=== PATIENT | male | born 1965 | race Caucasian/White ===

== ENCOUNTER 2016-10-29 19:03 | Emergency (ER) | payer OTHER ==
[~2016-10-29] VITALS: Ht 175.3 cm; Wt 129.3 kg
[2016-10-29 19:26] VITALS: BP 180/100
--- NOTE | 2016-10-29 19:32 | PHYS DOC ---
Adult General Chief Complaint Chief Complaint: FINGER INJURY [facility] HPI Patient is a 51 year old male presents to the emergency department with complaints of left index finger laceration. Patient was using a mandolin slicing device when he injured the distal tip of the long finger. Review of Systems Review of Systems Constitutional: Denies fever or chills [] Eyes: Denies change in visual acuity, redness, or eye pain [] HENT: Denies nasal congestion or sore throat [] Respiratory: Denies cough or shortness of breath [] Cardiovascular: No additional information not addressed in HPI [] GI: Denies abdominal pain, nausea, vomiting, bloody stools or diarrhea [] : Denies dysuria or hematuria [] Musculoskeletal: Denies back pain or joint pain [] Integument: Left long finger, laceration Neurologic: Denies headache, focal weakness or sensory changes [] Endocrine: Denies polyuria or polydipsia [] Current Medications Current Medications Current Medications Medications (Trade) Dose Ordered Sig/Melissa Start Time Stop Time Status Last Admin Dose Admin Diphtheria/ Tetanus/Acell Pertussis (Boostrix) 0.5 ml ONCE ONCE 10/29/16 20:00 10/29/16 20:01 Gelatin (Gelfoam Size 12-7mm) 1 each 1X ONCE 10/29/16 20:00 10/29/16 20:01 Ketorolac Tromethamine (Toradol Im) 60 mg 1X ONCE 10/29/16 20:00 10/29/16 20:01 Allergies Allergies Allergies Coded Allergies Type Severity Reaction Last Updated Verified No Known Drug Allergies 10/29/16 No Physical Exam Physical Exam Constitutional: Well developed, well nourished, no acute distress, non-toxic appearance. [] HENT: Normocephalic, atraumatic, bilateral external ears normal, oropharynx moist, no oral exudates, nose normal. [] Eyes: PERRLA, EOMI, conjunctiva normal, no discharge. [] Neck: Normal range of motion, no tenderness, supple, no stridor. [] Cardiovascular:Heart rate regular rhythm, no murmur [] Lungs & Thorax: Bilateral breath sounds clear to auscultation [] Abdomen: Bowel sounds normal, soft, no tenderness, no masses, no pulsatile masses. [] Skin: Warm, dry, no erythema, no rash. [] Back: No tenderness, no CVA tenderness. [] Extremities: Left long finger, 1 cm, distal tip avulsion. Patient has full range of motion of all digits without difficulty. Neurovascular intact distally. Neurologic: Alert and oriented X 3, normal motor function, normal sensory function, no focal deficits noted. [] Psychologic: Affect normal, judgement normal, mood normal. [] Current Patient Data Vital Signs Vital Signs Date Time Temp Pulse Resp B/P (MAP) Pulse Ox O2 Delivery O2 Flow Rate FiO2 10/29/16 19:26 98.3 74 20 98 Room Air 98.3 EKG EKG [] Radiology/Procedures Radiology/Procedures Right long finger x-ray, no acute bony abnormality Procedure note: wound cleansed with betadine and NS, gelfoam applied, 4x4 with coban applied. Pt tolerated procedure well. Course & Med Decision Making Course & Med Decision Making Pertinent Labs and Imaging studies reviewed. (See chart for details) [] Dragon Disclaimer Dragon Disclaimer This electronic medical record was generated, in whole or in part, using a voice recognition dictation system. Departure Departure Impression: Primary Impression: Soft tissue avulsion Disposition: 01 HOME, SELF-CARE Condition: STABLE Referrals: NO PCP (PCP) [facility] Patient Instructions: Deep Skin Avulsion, Diphtheria Toxoid; Tetanus Toxoid Adsorbed, DT, Td, Wound Care, [id number] Scripts Tramadol Hcl (TRAMADOL HCL) 50 Mg Tablet 50 MG PO Q6H Y for PAIN, #20 TAB 0 Refills Prov: SAUNDRA BRYANT APRN 10/29/16 SAUNDRA BRYANT APRN Oct 29, 2016 19:32
[2016-10-29] MEDS ORDERED: TRAM50TA PO (19:51)
[2016-10-29] MEDS ORDERED: GELATIN SPONGE SIZE 12-7MM SPONGE. TP ONE (20:00)
[2016-10-29] MEDS ORDERED: DIPHTH,PERTUSS(ACELL),TET TOX 0.5 ML DISP.SYRIN. VAX IM ONE (20:00)
[2016-10-29] MEDS ORDERED: KETOROLAC 60 MG/2 ML INJ. IM ONE (20:00)
--- NOTE | 2016-10-30 08:01 | RAD ---
Right middle finger, 3 views, 2016: History: Avulsion injury There is a partially radiopaque bandage at the tip of the middle finger with underlying soft tissue deformity. The terminal tuft of the distal phalanx appears to be intact. No acute fracture or dislocation is identified. There are mild degenerative changes at scattered interphalangeal and MCP joints. IMPRESSION: No acute bony abnormality is detected.
== END 2016-10-29 20:10 | disposition home or self-care (01) ==
LOC: ER 19:03
DX: S61.211A Laceration without foreign body of left index finger without damage to nail, initial encounter (principal); W27.4XXA Contact with kitchen utensil, initial encounter; Y93.89 Activity, other specified; Y99.8 Other external cause status; Y92.89 Other specified places as the place of occurrence of the external cause
CPT/HCPCS: 73140; 90471; 90715; 96372; 99284; J1885

== ENCOUNTER → 2018-05-07 | Outpatient (CLI) | payer OTHER ==
[2018-02-23 11:00] VITALS: BP 119/73
[~2018-05-07] MED LIST: BIMA2.5D EACHEYE; TRAM50TA PO; WARF-78 PO
[2018-05-07 13:22] LABS: PROTHROMBIN TIME PATIENT 15.5 SEC (11.7-14.0)
== END | disposition home or self-care (01) ==
LOC: LAB 12:49
PROVIDERS: ATTEND Internal Medicine Pulmonary Disease
DX: I26.09 Other pulmonary embolism with acute cor pulmonale (principal)
CPT/HCPCS: 36415; 85610

== ENCOUNTER → 2018-05-15 | Outpatient (CLI) | payer OTHER ==
[2018-02-23 11:00] VITALS: BP 119/73
[~2018-05-15] MED LIST changes: +CONTRAST GIVEN. MC PRN; +IOHEXOL 350 MG/ML 100 ML VIAL. IV ONE
--- NOTE | 2018-05-15 15:38 | RAD ---
Examination: CT angiography chest HISTORY: History of chest pain, leg swelling COMPARISON: 02/19/2018 TECHNIQUE: Axial CT angiographic images of chest were performed with IV contrast. Coronal and sagittal 3-D MIP reformats are performed. Exposure: One or more of the following individualized dose reduction techniques were utilized for this examination: 1. Automated exposure control 2. Adjustment of the mA and/or kV according to patient size 3. Use of iterative reconstruction technique. Findings: The central airways are patent. The heart size grossly appears unremarkable. The caliber of the aorta grossly appears unremarkable. There is no evidence of filling defect identified in the main pulmonary arterial trunk and right and left main pulmonary arteries and in the visualized lobar, segmental branches of the pulmonary arteries. The evaluation of the distal branches of the pulmonary arteries is somewhat limited. Minimal bibasilar lung atelectasis. There is diffuse decreased attenuation noted in the liver likely hepatic steatosis. The visualized spleen, adrenals grossly appears unremarkable. Surgical changes identified in the stomach. Moderate degenerative changes thoracic spine. IMPRESSION: 1. No evidence of central pulmonary embolism. 2. The lungs are clear. Electronically signed by: Perry Farooq MD (05/15/2018 3:35 PM) [id number]
--- NOTE | 2018-05-15 16:28 | RAD ---
EXAM: Bilateral lower extremity venous Doppler sonogram. HISTORY: Pain and swelling. TECHNIQUE: Gillespie scale and color Doppler sonographic evaluation of the bilateral lower extremity veins with spectral waveform analysis was performed. FINDINGS: The left mid superficial femoral vein is incidentally duplicated in the left popliteal vein also appears to be partially duplicated. There is suspected nonocclusive chronic-appearing thrombus within one of the popliteal veins. There is normal color flow, normal compression of the abdomen are normal spectral waveforms within the extremity lower extremity veins. IMPRESSION: Suspected nonocclusive chronic-appearing deep venous thrombosis involving one of two left popliteal veins. This appears to be decreased compared to the prior study dated 02/20/2018. The previously suspected thrombosis involving the right popliteal vein and left superficial femoral vein is no longer seen. Electronically signed by: Tati Campbell MD (05/15/2018 4:24 PM) [place] [id number]
== END | disposition home or self-care (01) ==
LOC: CT 14:47
PROVIDERS: ATTEND Internal Medicine Pulmonary Disease
DX: M79.89 Other specified soft tissue disorders (principal); I10 Essential (primary) hypertension
CPT/HCPCS: 71275; 93970; Q9967